=== PATIENT | female | born 1940 | race Two or more races ===

== ENCOUNTER → 2016-12-14 | Outpatient (CLI) | payer MEDICARE, MEDICAID ==
[~2016-12-14] VITALS: Ht 162.6 cm; Wt 74.5 kg
[~2016-12-14] MED LIST: ALBU8HFA IH; ASA3 PO; ATOR40TA28 PO; GLIP10 PO; HYDR12.530 PO; INSLAN SQ; ISOS5 PO; LINA5TAB PO; LISI-662 PO; LORA10TA7 PO; METF10002 PO; NINT150C PO; RANI150T7 PO
[2016-12-14 11:02] VITALS: BP 139/63
== END | disposition home or self-care (01) ==
LOC: SRCNTR 10:46
PROVIDERS: ATTEND Internal Medicine Cardiovascular Disease
DX: J44.9 Chronic obstructive pulmonary disease, unspecified (principal); I10 Essential (primary) hypertension; M19.90 Unspecified osteoarthritis, unspecified site; I73.9 Peripheral vascular disease, unspecified; E11.9 Type 2 diabetes mellitus without complications; E78.5 Hyperlipidemia, unspecified; J84.10 Pulmonary fibrosis, unspecified
CPT/HCPCS: G0463

== ENCOUNTER → 2017-02-12 | Outpatient (CLI) | payer MEDICARE, MEDICAID ==
[~2017-02-12] VITALS: Ht 162.6 cm; Wt 73.5 kg
[2017-02-12 11:02] VITALS: BP 155/71
== END | disposition home or self-care (01) ==
LOC: SRCNTR 10:54
PROVIDERS: ATTEND Internal Medicine Cardiovascular Disease
DX: J44.9 Chronic obstructive pulmonary disease, unspecified (principal); J84.10 Pulmonary fibrosis, unspecified; E11.9 Type 2 diabetes mellitus without complications; I10 Essential (primary) hypertension; E78.5 Hyperlipidemia, unspecified; M19.90 Unspecified osteoarthritis, unspecified site; I87.1 Compression of vein
CPT/HCPCS: G0463